=== PATIENT | female | born 1950 | race Caucasian/White ===

== ENCOUNTER 2022-02-09 06:03 | Observation (INO) ==
[2022-02-09] MEDS ORDERED: 0.9 % Sodium Chloride 1,000 ML IV ONE (06:15)
[2022-02-09] MEDS ORDERED: Isovue-370 500 ML BOTTLE IVP ONE (06:15)
[2022-02-09] MEDS ORDERED: Ketorolac 30 MG/ML VIAL IVP PRN (06:16)
[2022-02-09 06:49] LABS: Bilirubin,Urine Negative (Negative); Blood,Urine Negative (Negative); Clarity,Urine Clear (Clear); Color,Urine Light-Yellow (Yellow); Glucose,Urine (UA) Normal (Normal); Ketones,Urine Negative (Negative); Leukocyte Esterase,Urine Negative (Negative); Nitrite,Urine Negative (Negative); Protein,Urine Trace mg/dL (Neg-Trace); Specific Gravity,Urine 1.018 (1.010-1.025); Urobilinogen,Urine Normal (Normal)
[2022-02-09 07:00] LABS: Basophils % 0.2 %; Eosinophils % 0.2 %; Hematocrit 36.6 % (35.3-44.9); Hemoglobin 12.1 g/dL (11.5-15.4); Immature Granulocytes % 0.2 % (0-4); Lymphocytes % 9.6 %; Mean Corpuscular HGB Conc 33.1 g/dL (31.6-35.5); Mean Corpuscular Hemoglobin 28.7 pg (28.0-33.3); Mean Corpuscular Volume 86.7 fL (83.0-100.0); Monocytes # 0.9 K/mcL (0.0-1.3); Monocytes % 8.7 %; Neutrophils # 8.5 K/mcL (1.6-8.9); Platelet Count 180 K/mcL (140-400); Red Blood Count 4.22 M/mcL (3.82-4.97); Segmented Neutrophils % 81.1 %; White Blood Count 10.5 K/mcL (4.3-11.1)
[2022-02-09 07:23] LABS: Alanine Aminotransferase 17 Units/L (7-52); Albumin 3.9 g/dL (3.5-5.7); Albumin/Globulin Ratio 1.4 (1.1-2.2); Alkaline Phosphatase 55 Units/L (34-104); Aspartate Amino Transferase 19 Units/L (13-39); BUN/Creatinine Ratio 19 (6-26); Bilirubin,Direct 0.1 mg/dL (0.0-0.2); Bilirubin,Indirect 0.6 mg/dL (0.0-1.0); Bilirubin,Total 0.7 mg/dL (0.3-1.0); Blood Urea Nitrogen 10 mg/dL (8-23); Calcium 9.2 mg/dL (8.6-10.3); Carbon Dioxide 26 mEq/L (23-29); Chloride 102 mEq/L (98-107); Globulin 2.7 g/dL (2.4-3.5); Glucose 117 mg/dL (70-105); Lipase 13 Units/L (11-82); Osmolality,Calculated 278 (280-300); Potassium 3.9 mEq/L (3.5-5.1); Sodium 134 mEq/L (136-145); Total Protein 6.6 g/dL (6.4-8.9); eGFR For African Americans > 60 (> 60); eGFR For Non-African Americans > 60 (> 60)
[2022-02-09] MEDS ORDERED: MetroNIDAZOLE 500 MG/100 ML 500 MG/100 ML BAG IVPB ONE (08:32)
[2022-02-09] MEDS ORDERED: cefTRIAXone 1,000 MG in Water for inj. (sterile) 10 ML IVP STA (08:32)
[2022-02-09] MEDS ORDERED: Acetaminophen IV 1,000 MG/100 ML BAG IVPB ONE ×4 (10:56→22:58)
[2022-02-09] MEDS ORDERED: Ondansetron 4 MG/2 ML VIAL IVP PRN ×2 (10:56→21:30)
[2022-02-09] MEDS ORDERED: *HR* Metoprolol 5 MG/5 ML VIAL IVP PRN (10:57)
[2022-02-09 12:19] LABS: INR 1.2; Prothrombin Time 13.4 Seconds (9.4-12.1)
[2022-02-09 12:22] LABS: Activated Partial Thrombo Time 21.7 Seconds (26.0-36.0)
[2022-02-09] MEDS: Famotidine 20 MG/2 ML VIAL IVP SCH ×2 (12:50→17:51)
[2022-02-09] MEDS: Ringers Solution, Lactated 1,000 ML IVC SCH (12:50)
[2022-02-09] MEDS: MetroNIDAZOLE 500 MG/100 ML 500 MG/100 ML BAG IVPB SCH (15:16)
[2022-02-09] MEDS ORDERED: Promethazine 6.25 MG in Water for inj. (sterile) 20 ML IVPB PRN (21:30)
[2022-02-09] MEDS ORDERED: *HR* OxyCODONE Immed Rel 5 MG TABLET PO PRN (21:30)
[2022-02-09] MEDS ORDERED: Ringers Solution, Lactated 1,000 ML IVC SCH (21:30)
[2022-02-09] MEDS ORDERED: *HR* HYDROmorphone PF 0.5 MG/0.5 ML SYRINGE IVP PRN (21:30)
[2022-02-09] MEDS ORDERED: *HR* FentaNYL (PF) 100 MCG/2 ML VIAL ONE (21:46)
[2022-02-09] MEDS ORDERED: *HR* Propofol 200 MG/20 ML VIAL IVP ONE (21:47)
[2022-02-09] MEDS ORDERED: Lidocaine -MPF 2% 2 ML VIAL ONE ×2 (21:47→23:20)
[2022-02-09] MEDS ORDERED: *HR* Rocuronium Bromide 50 MG/5 ML VIAL ONE (21:47)
[2022-02-09] MEDS ORDERED: *HR* Succinylcholine 200 MG/10 ML VIAL IVP ONE (21:47)
[2022-02-09] MEDS ORDERED: Ondansetron 4 MG/2 ML VIAL ONE (21:47)
[2022-02-09] MEDS ORDERED: Lidocaine HCL 4 ML Topical Solution (Laryng-O-Jet Kit Sterile Pak) TP ONE (21:47)
[2022-02-09] MEDS ORDERED: Sugammadex Sodium 200 MG/2 ML VIAL IV ONE (22:42)
[2022-02-09] MEDS ORDERED: *HR* HYDROMORPHONE 2 MG/ML VIAL ONE (22:52)
[2022-02-10] MEDS ORDERED: Promethazine 6.25 MG in Water for inj. (sterile) 20 ML IVPB PRN (00:33)
[2022-02-10] MEDS ORDERED: Ondansetron 4 MG/2 ML VIAL IVP PRN (00:33)
[2022-02-10] MEDS ORDERED: *HR* Metoprolol 5 MG/5 ML VIAL IVP PRN (00:33)
[2022-02-10] MEDS ORDERED: Ringers Solution, Lactated 1,000 ML IVC SCH (00:33)
[2022-02-10] MEDS: Ringers Solution, Lactated 1,000 ML IVC SCH (00:50)
[2022-02-10] MEDS: MetroNIDAZOLE 500 MG/100 ML 500 MG/100 ML BAG IVPB SCH (01:00)
[2022-02-10 05:16] LABS: Basophils % 0.1 %; Hematocrit 33.1 % (35.3-44.9); Hemoglobin 10.7 g/dL (11.5-15.4); Immature Granulocytes % 0.5 % (0-4); Lymphocytes # 0.4 K/mcL (0.6-4.6); Lymphocytes % 4.8 %; Mean Corpuscular HGB Conc 32.3 g/dL (31.6-35.5); Mean Corpuscular Hemoglobin 28.8 pg (28.0-33.3); Mean Platelet Volume 10.2 fL (9.4-12.4); Monocytes # 0.2 K/mcL (0.0-1.3); Monocytes % 3.1 %; Platelet Count 135 K/mcL (140-400); Red Blood Count 3.72 M/mcL (3.82-4.97); Red Cell Distribution Width 14.2 % (11.5-14.5); Segmented Neutrophils % 91.5 %; White Blood Count 7.7 K/mcL (4.3-11.1)
[2022-02-10 05:35] LABS: BUN/Creatinine Ratio 13 (6-26); Blood Urea Nitrogen 7 mg/dL (8-23); Calcium 8.5 mg/dL (8.6-10.3); Carbon Dioxide 21 mEq/L (23-29); Chloride 104 mEq/L (98-107); Glucose 135 mg/dL (70-105); Osmolality,Calculated 278 (280-300); Sodium 134 mEq/L (136-145); eGFR For African Americans > 60 (> 60); eGFR For Non-African Americans > 60 (> 60)
[2022-02-10] MEDS ORDERED: Acetaminophen IV 1,000 MG/100 ML BAG IVPB SCH (06:00)
[2022-02-10] MEDS ORDERED: Famotidine 20 MG/2 ML VIAL IVP SCH (06:00)
[2022-02-10] MEDS ORDERED: MetroNIDAZOLE 500 MG/100 ML 500 MG/100 ML BAG IVPB SCH (08:00)
[2022-02-10 08:26] VITALS: BP 111/63; PULSE 57; TEMP 97.7; O2SAT 97
== END 2022-02-10 11:37 | disposition home or self-care (01) ==
LOC: 3ANU 06:03 → EMEROOARM 06:03 → 3ANU 10:26
PROVIDERS: ADMIT Surgery; ATTEND Surgery